=== PATIENT | male | born 1950 | race Caucasian/White ===

== ENCOUNTER 2017-07-14 22:59 | Emergency (ER) | payer OTHER ==
--- NOTE | 2017-07-15 00:04 | ED Physician Documentation ---
Skin Rash - HISTORIAN Historian: patient - HPI Stated Complaint: rash Chief Complaint: Skin Rash Additional Information: onset skin rash lt ankle circumfurentialpast 4-5 days now sl painful erythematous area no drainage of swelling. pts bs 500 plus but he says he usually runs around 600. 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 denies: headache, fainting, dizziness - PAST HX Past History: diabetes Type 1, hypertension, other (gerd) Surgeries/Procedures: Yes Allergies/Adverse Reactions: Allergies Allergy/AdvReac Type Severity Reaction Status Date / Time ibuprofen Allergy Severe shut down Verified 07/14/17 23:15 kidneys Home Medications: Ambulatory Orders Medication Instructions Recorded Omeprazole 40 mg PO DAILY 01/31/17 Oxycodone HCl/Acetaminophen 1 each PO Q6 u2 01/31/17 [Percocet 5-325 Mg Tablet] - SOCIAL HX Smoking History: non-smoker Alcohol Use: occasionally Drug Use: none - FAMILY HX Family History: none - VITAL SIGNS Vital Signs: Vital Signs Temp Pulse Resp BP Pulse Ox 98.0 F 66 16 130/71 98 07/14/17 23:05 07/14/17 23:05 07/14/17 23:05 07/14/17 23:05 07/14/17 23:05 - REVIEWED ASSESSMENTS Nursing Assessment Reviewed: Yes Vitals Reviewed: Yes Skin Rash Physical Exam - EXAM General Appearance: mild distress Skin: warm,dry, skin rash, erythema, other (lt ancle all around and approx 4-5 in in heighth). No: cyanotic, diaphoretic, pallid, jaundiced, abscess Character: asymmetric, macular, vesicular Symptoms: warmth Extremities: no edema EENT: eyes nml inspection Neck: trachea midline. No: lymphadenopathy Respiratory: no resp distress, chest non-tender, breath sounds normal CVS: reg. rate & rhythm, heart sounds nml Abdomen: non-tender. No: no distention Neuro/Psych: oriented x3, motor nml, sensation nml, mood/affect nml, other (pt seems to think the bs has nothing to do w/hes rash) Discharge Clincal Impression: skin rash lt ankle, blood sugar chronically 600+ Referrals: Primary Doctor,No [Primary Care Provider] - 2 Days Comments: PT TO CONTROL BS TAKE CLARITIN 10 PER DAY W/RANITIDINE 150 DAILY AND USE HYDROCORTIZONE UNDER SARAN WRAP AREA RASH Condition: Poor Disposition: 01 HOME, SELF-CARE Decision to Admit: NO Decision Time: 00:12
[2017-07-15 00:15] VITALS: BP 133/74
== END 2017-07-14 23:58 | disposition home or self-care (01) ==
LOC: ED 22:59
DX: R21 Rash and other nonspecific skin eruption (principal); R73.9 Hyperglycemia, unspecified
CPT/HCPCS: 99283

== ENCOUNTER 2019-06-11 12:54 | Emergency (ER) | payer OTHER ==
--- NOTE | 2019-06-11 13:32 | ED Physician Documentation ---
General Adult - HISTORIAN Historian: patient - HPI Stated Complaint: shortness of breath Chief Complaint: General Adult (Shortness of Breath) Additional Information: Patient is a 68-year-old male that presents to the ER via POV. He c/o increasing shortness of breath, weakness, decreased appetite, non-productive cough, and states he almost fell this morning. He had initially called an ambulance but thought he could drive himself. Patient is pale, slow moving, slow thought process. He is an insulin dependent diabetic (uncontrolled); he states he has not eaten in 3 days but had a piece of cake last night. Onset: days ago Timing: still present Severity: moderate - ROS CONST: weakness EYES/ENT: nasal congestion CVS/RESP: shortness of breath, cough GI/: denies: vomiting, nausea MS/SKIN/LYMPH: none - PAST HX Past History: hypertension Other History: diabetes Type 1, other (GERD, peripheral neuropathy) Surgeries/Procedures: other (thyroidectomy, hernia, cataract, right bicep) Immunizations: UTD Allergies/Adverse Reactions: Allergies Allergy/AdvReac Type Severity Reaction Status Date / Time ibuprofen Allergy Severe shut down Verified 06/11/19 13:29 kidneys Home Medications: Ambulatory Orders Medication Instructions Recorded Omeprazole 40 mg PO DAILY 01/31/17 Azithromycin [Zithromax] 250 mg PO DAILY #6 tablet 06/11/19 Cefuroxime Axetil [Ceftin] 250 mg PO BID #20 tablet 06/11/19 - SOCIAL HX Smoking History: non-smoker Alcohol Use: none Drug Use: none - FAMILY HX Family History: No - VITAL SIGNS Vital Signs: Vital Signs Temp Pulse Resp BP Pulse Ox 98.1 F 86 12 131/77 92 06/11/19 12:55 06/11/19 12:55 06/11/19 12:55 06/11/19 12:55 06/11/19 12:55 - REVIEWED ASSESSMENTS Nursing Assessment Reviewed: Yes Vitals Reviewed: Yes Progress - Progress Progress: 14:10 Consulted with Collaborator in regards to EKG (minor elevation in AVF)- patient has no sx's- trop. negative; will repeat EKG and Trop. in a couple of hours. 14:15 Discussed with patient being admitted and getting blood sugars under control and treating pneumonia. Patient states he really needs to go home because his is in a w/c. He states that he feels that he will do well at home and will picking tech his prescriptions from [facility]. He is willing to wait for second set of labs and EKG. 15:30 EKG unchanged- no worsening- patient remains asymptomatic- never had any chest pain. 16:20 Patient still denies any chest pain; repeat cardiac enzymes negative; patient would like to go home; states he feels much better; VSS, 96-98% on RA. - EKG/XRAY/CT EKG: NSR ED Results Lab/Radiology - Radiology Radiology Impressions: Examination: PA and lateral chest. History: Evaluate lung daley. Comparison exam: None provided. Findings: PA and lateral views of the chest demonstrates a normal cardiac and mediastinal silhouette. Aortic vascular calcifications. Chronic interstitial changes. No focal infiltrate. Haziness in the region of the posterior sulci. Osseous structures are appropriate for age. Impression: Likely posterior infiltrates. Correlate with patient symptoms. - Orders Orders: ED Orders Category Date Time Status Continuous EKG monitoring Q30M Care 06/11/19 13:25 Ordered Continuous Pulse Oximetry Q30M Care 06/11/19 13:[address] IV Lock 1T Care 06/11/19 13:25 Ordered CHEST 2VIEW [RAD] Stat Exams 06/11/19 Ordered CBC/PLATELET/DIFF Routine Lab 06/11/19 13:25 Ordered CMP Routine Lab 06/11/19 13:25 Ordered CREATINE KINASE Routine Lab 06/11/19 13:25 Ordered TROPONIN I Stat Lab 06/11/19 13:25 Ordered Oxygen Daily Oxygen 06/11/19 13:30 Ordered EKG WITH COMPARISON Stat Ther 06/11/19 13:25 Ordered General Adult Physical Exam - PHYSICAL EXAM GENERAL APPEARANCE: mild distress EENT: eye inspection normal, ENT inspection normal, FAISAL NECK: normal inspection RESPIRATORY: chest non-tender, breath sounds normal CVS: heart sounds normal, equal pulses ABDOMEN: soft, normal bowel sounds SKIN: warm/dry, pallor EXTREMITIES: non-tender, normal range of motion NEURO: oriented X3, CN's nml as tested, motor nml, sensation nml, mood/affect nml, cognition normal Discharge Clincal Impression: Pneumonia Prescriptions: Azithromycin [Zithromax] 250 mg PO DAILY #6 tablet Cefuroxime Axetil [Ceftin] 250 mg PO BID #20 tablet Referrals: Primary Doctor,No [Primary Care Provider] - 2 Days Additional Instructions: Take antibiotics as directed: 1. Cefuroxime 250mg by mouth twice a day 2. Zithromax 500mg today, then 250 mg daily for 4 days Increase fluid intake Alternate Tylenol and Ibuprofen as needed for discomfort Follow up with PCP this week for re-evaluation Condition: Good Disposition: 01 HOME, SELF-CARE Decision to Admit: NO Decision Time: 16:22
[2019-06-11 13:36] LABS: BASOPHILS % 0.5 % (0.0-1.5); NEUTROPHILS # 3.1 # k/uL (1.4-7.7)
[2019-06-11 13:50] LABS: eGFR (Non-African) > 60
[2019-06-11] MEDS: 0.9 % SODIUM CHLORIDE 500 ML IV ONE (14:22)
[2019-06-11] MEDS: cefTRIAXone SODIUM 1 GM in 0.9 % SODIUM CHLORIDE 50 ML IV ONE (14:34)
[2019-06-11] MEDS: AZITHROMYCIN 500 MG in 0.9 % SODIUM CHLORIDE 250 ML IV ONE (15:11)
[2019-06-11 16:39] VITALS: BP 123/78
--- NOTE | 2019-06-12 12:26 | Diagnostic Imaging Report ---
TONG MATTSON ED [facility] [id number] [facility].[address] [id number] Report Submission Date: Jun 11, 2019 1:57:37 PM CDT Patient Study Name: ANAI CHRISTY Date: Jun 11, 2019 1:27:01 PM CDT Modality Type: DX Gender: M Description: CHEST 2VIEW : 52 Institution: [facility] Physician: TONG MATTSON ED Examination: PA and lateral chest. History: Evaluate lung daley. Comparison exam: None provided. Findings: PA and lateral views of the chest demonstrates a normal cardiac and mediastinal silhouette. Aortic vascular calcifications. Chronic interstitial changes. No focal infiltrate. Haziness in the region of the posterior sulci. Osseous structures are appropriate for age. Impression: Likely posterior infiltrates. Correlate with patient symptoms. Electronically signed on Jun 11, 2019 1:57:37 PM CDT by: Daren OSBORN
== END 2019-06-11 16:33 | disposition home or self-care (01) ==
LOC: ED 12:54
DX: J18.9 Pneumonia, unspecified organism (principal)
CPT/HCPCS: 36415; 71046; 80053; 82550; 84484; 85025; 87040; 93005; 96361; 96365; 99283; 99284; J0456; J0696; J7050; J7060; S1016